=== PATIENT | male | born 1965 | race Caucasian/White ===

== ENCOUNTER 2017-08-20 22:41 | Emergency (ER) | payer MEDICAID ==
[~2017-08-20] VITALS: Ht 165.1 cm; Wt 105.2 kg
[~2017-08-20 22:41] MED LIST: CLIN-80 PO; COMIN IH; FLUT12AE4 IH; THC INH
[2017-08-20 22:57] VITALS: BP 130/84
[2017-08-20] MEDS ORDERED: PENI250T2 PO (23:05)
== END 2017-08-20 23:12 | disposition home or self-care (01) ==
LOC: ER 22:41
DX: K08.89 Other specified disorders of teeth and supporting structures (principal); F12.10 Cannabis abuse, uncomplicated; F15.10 Other stimulant abuse, uncomplicated; Z87.442 Personal history of urinary calculi; Z86.14 Personal history of Methicillin resistant Staphylococcus aureus infection; Z91.018 Allergy to other foods; Z79.899 Other long term (current) drug therapy
CPT/HCPCS: 99283

== ENCOUNTER 2017-11-02 13:42 | Emergency (ER) | payer MEDICAID ==
[~2017-11-02] VITALS: Ht 165.1 cm; Wt 107.4 kg
[2017-11-02 13:50] VITALS: BP 122/94
[2017-11-02] MEDS ORDERED: AMOX-580 PO (14:32)
== END 2017-11-02 15:22 | disposition home or self-care (01) ==
LOC: ER 13:43
DX: K04.7 Periapical abscess without sinus (principal); F12.10 Cannabis abuse, uncomplicated; F15.10 Other stimulant abuse, uncomplicated; Z87.442 Personal history of urinary calculi; Z86.14 Personal history of Methicillin resistant Staphylococcus aureus infection; Z88.8 Allergy status to other drugs, medicaments and biological substances; Z79.899 Other long term (current) drug therapy
CPT/HCPCS: 99283

== ENCOUNTER 2019-03-27 21:10 | Emergency (ER) | payer MEDICAID ==
[~2019-03-27] VITALS: Ht 165.1 cm; Wt 106.9 kg
[~2019-03-27 21:10] MED LIST changes: -CLIN-80 PO; +CLIN-96 PO
[2019-03-27 21:16] VITALS: BP 163/102
[2019-03-27] MEDS ORDERED: ibuprofen tablet 400 MG TABLET PO ONE (21:40)
== END 2019-03-27 21:48 | disposition home or self-care (01) ==
LOC: ER 21:11
DX: R10.9 Unspecified abdominal pain (principal); R06.7 Sneezing; F12.90 Cannabis use, unspecified, uncomplicated; F15.90 Other stimulant use, unspecified, uncomplicated; F10.99 Alcohol use, unspecified with unspecified alcohol-induced disorder; Z86.14 Personal history of Methicillin resistant Staphylococcus aureus infection; Z87.442 Personal history of urinary calculi; Z88.6 Allergy status to analgesic agent; Z91.018 Allergy to other foods; Z88.5 Allergy status to narcotic agent; Z79.899 Other long term (current) drug therapy; Y90.9 Presence of alcohol in blood, level not specified
CPT/HCPCS: 99282

== ENCOUNTER 2020-08-29 21:01 | Emergency (ER) | payer MEDICAID ==
[~2020-08-29] VITALS: Ht 165.1 cm; Wt 100.0 kg
[~2020-08-29 21:01] MED LIST changes: -CLIN-96 PO; +CLIN-97 PO
[2020-08-29 21:02] VITALS: BP 167/103
[2020-08-29] MEDS ORDERED: LIDO20SO16 PO (22:34)
[2020-08-29] MEDS ORDERED: PENI500T2 PO (22:34)
[2020-08-29] MEDS ORDERED: acetaminophen 325mg tablet PO ONE (22:45)
== END 2020-08-29 22:56 | disposition home or self-care (01) ==
LOC: ER 21:01
DX: K04.7 Periapical abscess without sinus (principal); K08.89 Other specified disorders of teeth and supporting structures; F12.90 Cannabis use, unspecified, uncomplicated; F15.90 Other stimulant use, unspecified, uncomplicated; Z87.442 Personal history of urinary calculi; Z86.14 Personal history of Methicillin resistant Staphylococcus aureus infection; Z72.89 Other problems related to lifestyle; Z88.6 Allergy status to analgesic agent; Z88.8 Allergy status to other drugs, medicaments and biological substances; Z91.018 Allergy to other foods; Z79.2 Long term (current) use of antibiotics; Z79.899 Other long term (current) drug therapy
CPT/HCPCS: 99283

== ENCOUNTER 2020-12-06 06:33 | Emergency (ER) | payer MEDICAID ==
[~2020-12-06 06:33] MED LIST changes: +LIDO20SO16 PO
== END 2020-12-06 07:22 | disposition left against medical advice (07) ==
LOC: ER 06:34
DX: M25.561 Pain in right knee (principal); Z53.21 Procedure and treatment not carried out due to patient leaving prior to being seen by health care provider

== ENCOUNTER 2021-01-26 03:43 | Emergency (ER) | payer MEDICAID ==
[~2021-01-26] VITALS: Ht 165.1 cm; Wt 115.0 kg
[2021-01-26] MEDS ORDERED: ibuprofen tablet 400 MG TABLET PO ONE (04:00)
[2021-01-26] MEDS ORDERED: acetaminophen 325mg tablet PO ONE (04:00)
[2021-01-26 05:27] VITALS: BP 147/98
== END 2021-01-26 05:31 | disposition home or self-care (01) ==
LOC: ER 03:43
DX: M25.561 Pain in right knee (principal); F12.90 Cannabis use, unspecified, uncomplicated; F15.90 Other stimulant use, unspecified, uncomplicated; Z87.442 Personal history of urinary calculi; Z86.14 Personal history of Methicillin resistant Staphylococcus aureus infection; Z72.89 Other problems related to lifestyle; Z88.6 Allergy status to analgesic agent; Z88.8 Allergy status to other drugs, medicaments and biological substances; Z79.2 Long term (current) use of antibiotics; Z79.899 Other long term (current) drug therapy
CPT/HCPCS: 73564; 99283

== ENCOUNTER 2022-07-29 02:56 | Emergency (ER) | payer MEDICAID ==
[~2022-07-29] VITALS: Ht 165.1 cm; Wt 102.3 kg
[2022-07-29 03:22] VITALS: BP 144/93
== END 2022-07-29 07:00 | disposition left against medical advice (07) ==
LOC: ER 02:56
DX: K08.89 Other specified disorders of teeth and supporting structures (principal); Z53.21 Procedure and treatment not carried out due to patient leaving prior to being seen by health care provider